=== PATIENT | male | born 1955 | race Caucasian/White ===

== ENCOUNTER 2019-08-09 09:53 | Day surgery (SDC) | payer BC ==
[~2019-08-09 09:53] MED LIST: Lactated Ringers 1,000 ML IV SCH; Sodium Chloride 0.9% 10 ML Syringe FLUSH PRN
[2019-08-09] MEDS ORDERED: Propofol 200 MG/20 ML SDV ONE ×2 (11:09→11:33)
[2019-08-09] MEDS ORDERED: fentaNYL 100 MCG/2 ML SDV ONE (11:09)
--- NOTE | 2019-08-09 14:26 | OR ---
PRE-OPERATIVE DIAGNOSES: Screening colonoscopy. This is the patient's first colonoscopy. He has noted also some blood at times on the paper when he wipes. He denies any family history of colon cancer. POST-OPERATIVE DIAGNOSES: 1. A 4-mm polyp at the entry to cecum. Removed with cold forceps. 2. Mild left-sided diverticulosis. 3. Mild hemorrhoids. PROCEDURE: Colonoscopy with polypectomy x1 using cold forceps. ANESTHESIA: Monitored anesthesia care. BOWEL PREP: Fair. Did require a moderate amount of suctioning along with irrigation. Jaciel is 64-year-old male, who was brought to the endoscopy suite after discussing risks and benefits of the procedure. Informed consent was obtained for conscious sedation and colonoscopy with or without biopsy and/or polypectomy. We also discussed possibility of missed lesions. Pre-procedure exam was unremarkable. IV, oxygen, and monitors were placed. The patient was placed in the left lateral decubitus position. Sedation was administered and a digital rectal exam was performed, which was unremarkable. Colonoscope was passed into the rectum and slowly advanced all the way to the cecum. Cecum was viewed and photographed. At the entry to the cecum, there was a 4-mm polyp which was removed using cold forceps. The colonoscope was slowly withdrawn and the mucosa was closed observed in a direct circumferential manner. The ascending colon was unremarkable. The transverse colon was unremarkable. The descending and sigmoid colon revealed some mild diverticulosis. Retroflexion was performed and rectal mucosa revealed some [id number] hemorrhoids, not acutely inflamed. Scope was removed. The patient tolerated the procedure well. The patient was monitored until that baseline status. Discharge instructions were reviewed and the patient was discharged in good condition. COMPLICATIONS: None. ESTIMATED BLOOD LOSS: Less than 1 mL. RECOMMENDATIONS/FOLLOW-UP: We will await results of path report to determine ideal followup interval. I would like to kindly thank Aguilar Yeboah for this referral. DMB: 08/09/2019 13:13:08 MODL: 08/09/2019 14:18:03 /[id number]
== END 2019-08-09 13:20 | disposition home or self-care (01) ==
LOC: VM.SDS 09:53
PROVIDERS: ATTEND Family Medicine
DX: Z12.11 Encounter for screening for malignant neoplasm of colon (principal); D12.0 Benign neoplasm of cecum; K57.30 Diverticulosis of large intestine without perforation or abscess without bleeding; K64.9 Unspecified hemorrhoids; F17.290 Nicotine dependence, other tobacco product, uncomplicated; Z79.51 Long term (current) use of inhaled steroids
CPT/HCPCS: J2704; J3010; J7120